=== PATIENT | male | born 1970 | race Hispanic/Latino ===

== ENCOUNTER 2018-03-07 15:37 | Emergency (ER) | payer BC ==
[2018-03-07] MEDS ORDERED: Adacel (T-DAP) 0.5 ML SYRINGE ONE (15:54)
--- NOTE | 2018-03-07 17:55 | RAD ---
RADIOGRAPH RIGHT THIRD DIGIT THREE VIEWS: History: 47-year-old male status post laceration injury to the third digit. FINDINGS: There is no fracture or dislocation. IMPRESSION: Negative. POS: JIN
--- NOTE | 2018-03-09 04:01 | CON ---
DATE OF CONSULTATION: 03/07/2018 CHIEF COMPLAINT: Contact with a sharp object to the right dominant long finger. HISTORY: Mr. Musnon reports he is a diabetic controlled with antihyperglycemics and mild diet modification. Reports that he does not have any history of previous right hand abnormality, but while performing activities at home, had a sharp knife edge contacted his dorsal right dominant middle finger. This is distal joint and medially, he had bleeding and inability to extend. The lack of extension brought him to the emergency room. PAST MEDICAL HISTORY: Diabetes treated with glyburide, oral antihyperglycemic agent along with multiple other noncontributory medications. He has not had diabetic ketoacidosis. ALLERGIES: HE HAS NO ALLERGIES. PAST SURGICAL HISTORY: Benign. REVIEW OF SYSTEMS: Noncontributory. PHYSICAL EXAMINATION: GENERAL: Patient is awake, alert, oriented x3. He has a mixed suárez and black allen, well groomed. No evidence for male pattern baldness. VITAL SIGNS: Respiratory rate was 22. NEUROLOGIC EXAMINATION: Cranial nerves intact 2 through 12. EXTREMITIES: M5 power C5-T1 except at the right middle finger where he had complete absence of active extension, but fully passively extend the right long finger distal phalangeal joint, where there was a 2 cm laceration with the edges almost in apposition. Radiographs show no abnormality in bone and joint. ASSESSMENT AND RECOMMENDATION: Zone 1 extensor tendon laceration, complete without active extension, this is probably case. We will schedule for surgery, but due to the prolonged delay expected the night of evaluation, March 07, 2018, he was told to go home. He will follow up with us after a call receive from our office to give him a surgery time either or 09 March 2018. Job ID: [id number]
== END 2018-03-07 17:12 | disposition home or self-care (01) ==
LOC: ERS 15:37
DX: S66.322A Laceration of extensor muscle, fascia and tendon of right middle finger at wrist and hand level, initial encounter (principal); M10.9 Gout, unspecified; E11.9 Type 2 diabetes mellitus without complications; Z79.899 Other long term (current) drug therapy; W26.0XXA Contact with knife, initial encounter
CPT/HCPCS: 90471; 90715

== ENCOUNTER 2018-03-08 18:02 | Day surgery (SDC) | payer BC ==
[~2018-03-08 18:02] MED LIST: Lidocaine 1% PF 5 ML VIAL ONE; Ondansetron PF 4 MG/2 ML Vial ONE; PHENYLEPHRINE-NS 100 MCG/ML 10 ML SYRINGE ONE; PROPOFOL 200 MG/20 ML VIAL ONE; ePHEDrine/0.9% NaCl/PF SYRINGE 50 mg/10 ml ONE
[2018-03-08] MEDS ORDERED: Sodium Chloride 0.9% 20 ML ONE (18:30)
[2018-03-08] MEDS ORDERED: Bacitracin Zinc Ointment 30 gm TUBE ONE (18:30)
[2018-03-08] MEDS ORDERED: CEFAZOLIN 2 GM/50 ML BAG ONE (18:44)
[2018-03-08] MEDS ORDERED: Fentanyl 100 MCG/2 ML VIAL ONE (19:39)
[2018-03-08] MEDS ORDERED: Bupivacaine PF 0.5% 30 ML VIAL ONE (19:44)
--- NOTE | 2018-03-08 21:10 | RAD ---
INTRAOPERATIVE FLUOROSCOPIC IMAGING OF THE RIGHT HAND/FINGERS: INDICATIONS: Intraoperative pinning. FINDINGS: There are overlying artifacts, which obscure portions of the right hand. A K-wire is seen, traversin g the distal aspect of the third digit, traversing the DIP joint. Correlate with intraoperative find ings. IMPRESSION: Intraoperative fluoroscopic imaging for pinning, which involves the third digit of the partially imag ed right hand. POS: JEIMY
[2018-03-08] MEDS ORDERED: Ketorolac Tromethamine 30 MG/ML VIAL ONE (21:25)
--- NOTE | 2018-03-09 03:37 | OP ---
DATE OF PROCEDURE: 03/08/2018 POSTOPERATIVE DIAGNOSES: 100% zone 1 extensor tendon laceration, right middle finger. FINDIN% zone 1 extensor tendon laceration just 3 mm proximal to the joint with no injury or violation of the joint. PROCEDURE PERFORMED: 1. Open joint reduction with pinning, distal interphalangeal joint, 0.045 inch K-wire. 2. Right zone 1 extensor tendon repair of 100% lacerations, zone 1. 3. C-arm supervision. 4. Short-arm splint application. ESTIMATED BLOOD LOSS: 5 mL. TOURNIQUET TIME: 29 minutes, C-arm supervision. INDICATION: Sharp laceration in a police detective, inability total to extend the distal interphalangeal joint with the laceration obliquely, approximately 3 to 4 mm proximal. The laceration occurred approximately 24 hours prior to procedure. DESCRIPTION OF PROCEDURE: After successful general endotracheal anesthesia, the limb was prep and draped. We then did a time-out. We gave the patient a total of 20 mL of 0.5% Marcaine; 10 before the wound was opened and 10 after the wound was closed. We then had the exsanguinated the limb and time-out done appropriately. The patient then had the transverse 2 cm incision extended 7 cm distal and 1 cm proximal created almost an oblique Bailee approach and this was gently retracted. We then saw the 100% laceration. With the joint flexed, there was a 6 mm separation and with the joint closed, there was less than a millimeter separation with joint extended. Thus, we then irrigated the wound with a 2 L normal saline, debrided the wound edges. Then, we under the C-arm supervision, performed the closed reduction of the joint and pinned it in neutral position of the sagittal plane where 0.045 K-wire penetrated in the subchondral bone of the head of the middle phalanx, about 5 to 6 mm and was in perfect position. Then, we performed with a buried [id number] x7 knots in this patient's almost 2 cm wide tendon. There was excellent apposition. No gap seen. Then, released the tourniquet, the previously debrided wound was then closed in a simple fashion 3 cm and the approach wound was closed in a same using 4-0 nylon in each corner in interrupted simple pattern and 5-0 nylon for remainder portion of the wound. He had excellent capillary refill and the digit was pink and the patient had a splint applied after cutting the pin underneath the nail. Flow was then visible. He left the operating room without complication with a splint. Job ID: [id number]
== END 2018-03-08 22:15 | disposition home or self-care (01) ==
LOC: SDC 18:02
PROVIDERS: ATTEND Orthopaedic Surgery Hand Surgery
PROC: 0RSW34Z Reposition Right Finger Phalangeal Joint with Internal Fixation Device, Percutaneous Approach (ICD-10-PCS; principal; 2018-03-08)
PROC: 0LQ70ZZ Repair Right Hand Tendon, Open Approach (ICD-10-PCS; principal; 2018-03-08)
DX: S66.322A Laceration of extensor muscle, fascia and tendon of right middle finger at wrist and hand level, initial encounter (principal)
CPT/HCPCS: 76000; J1885; J2001; J2405; J2704; J3010; J3490; S0020

== ENCOUNTER 2018-11-15 08:21 | Outpatient (CLI) | payer BC ==
--- NOTE | 2018-11-15 11:08 | ULT ---
HEPATIC DOPPLER EVALUATION: Yo scale Doppler color flow imaging with spectral analysis performed. INDICATION: Abnormal liver function enzymes. FINDINGS: Reference is made to a CT abdomen exam 02/17/2006. Increased hepatic echogenicity of the hepatic parenchyma is present. There is mild increased volume of the liver with a length demonstrated at 18 cm. There is also increased size of the spleen, 14 cm in length, approximately. No acute gallbladder pathology or elicitation of Gunter's sign during the exam. The common duct is 7 mm, which is mildly dilated. Hepatic Doppler evaluation is performed which reveals appropriate patency of the portal venous system . The middle hepatic vein is not visualized for comment. Right and left hepatic veins are appropria te in Doppler appearance. Hepatic arterial waveform is elicited. At the splenic hilum there is a co mbination of arterial and venous waveform documented. IMPRESSION: 1. Mild prominence of the common duct at 7 mm. Recommend correlation with biliary laboratory values to exclude obstructive process of the biliary system. 2. Nonvisualization of middle hepatic vein. Otherwise, Doppler evaluation is unremarkable. 3. Mild hepatosplenomegaly. Findings indicate hepatic steatosis. POS: C
== END 2018-11-15 08:22 | disposition home or self-care (01) ==
LOC: BICULT 08:21
PROVIDERS: ATTEND Internal Medicine Gastroenterology
DX: R94.5 Abnormal results of liver function studies (principal); K76.0 Fatty (change of) liver, not elsewhere classified; R16.2 Hepatomegaly with splenomegaly, not elsewhere classified
CPT/HCPCS: 76705

== ENCOUNTER 2020-10-24 00:57 | Observation (INO) | payer BC ==
[2020-10-24 01:33] LABS: #Basophils 0.1 thou/uL (0.0-0.2); #Lymphocytes 2.7 thou/uL (1.20-3.40); #Monocytes 0.8 thou/uL (0.11-0.59); #Neutrophils 6.5 thou/uL (1.40-6.50); %Basophils 0.5 % (0.0-1.0); %Eosinophils 0.4 % (0.0-10.0); %Lymphocytes 27.2 % (21.0-51.0); %Monocytes 7.5 % (0.0-10.0); %Neutrophils 64.4 % (42.0-75.0); Hemoglobin 16.3 g/dL (14.0-18.0); Mean Corpuscular HGB CONC 34.9 g/dL (32.0-36.0); Mean Corpuscular Hemoglobin 30.8 pg (27.0-31.0); Mean Corpuscular Volume 88.1 fL (78.0-98.0); Mean Platelet Volume 7.7 fL (7.4-10.4); Platelet Count 207 thou/uL (130-400); RBC Distribution Width 12.1 % (11.5-14.5); Red Blood Cell (RBC) Count 5.29 mill/uL (4.70-6.10); White Blood Cell (WBC) Count 10.1 thou/uL (4.8-10.8)
[2020-10-24 02:39] LABS: ALT (SGPT) 63 U/L (8-55); AST (SGOT) 37 U/L (5-34); Albumin 4.2 g/dL (3.5-5.0); Alkaline Phosphatase 92 U/L (40-110); Anion Gap 14 mmol/L (10-20); BUN (Urea Nitrogen) 17 mg/dL (8.9-20.6); Bilirubin, Total 0.8 mg/dL (0.2-1.2); Calc. Creatinine Clearance 0 mL/min (70-130); Calcium 9.7 mg/dL (7.8-10.44); Carbon Dioxide 26 mmol/L (22-29); Chloride 101 mmol/L (98-107); Globulin 3.4 g/dL (2.4-3.5); Glucose 197 mg/dL (70-105); Potassium 3.9 mmol/L (3.5-5.1); Protein, Total 7.6 g/dL (6.0-8.3); Sodium 137 mmol/L (136-145)
[2020-10-24 03:06] VITALS: BMI 35.9
[2020-10-24] MEDS ORDERED: Atorvastatin Calcium 10 MG TAB PO SCH (09:00)
[2020-10-24] MEDS ORDERED: Losartan/Hydrochlorothiazide 100 mg/25 mg Tablet PO SCH (09:00)
[2020-10-24] MEDS ORDERED: Metoprolol Tartrate 50 MG TAB PO SCH (09:00)
[2020-10-24 11:30] LABS: Anion Gap 12 mmol/L (10-20); BUN (Urea Nitrogen) 20 mg/dL (8.9-20.6); Calc. Creatinine Clearance 163 mL/min (70-130); Calcium 9.4 mg/dL (7.8-10.44); Carbon Dioxide 25 mmol/L (22-29); Chloride 104 mmol/L (98-107); Glucose 205 mg/dL (70-105); Potassium 4.1 mmol/L (3.5-5.1); Sodium 137 mmol/L (136-145)
[2020-10-24 12:14] VITALS: BP 123/83; TEMP 98.1
== END 2020-10-24 16:07 | disposition home or self-care (01) ==
LOC: ERS 00:57 → T4-A 01:37
PROVIDERS: ADMIT Student in an Organized Health Care Education/Training Program; ATTEND Hospitalist
DX: T38.3X1A Poisoning by insulin and oral hypoglycemic [antidiabetic] drugs, accidental (unintentional), initial encounter (principal); E11.9 Type 2 diabetes mellitus without complications; I10 Essential (primary) hypertension; E78.5 Hyperlipidemia, unspecified; M10.9 Gout, unspecified; Z79.84 Long term (current) use of oral hypoglycemic drugs; Z79.899 Other long term (current) drug therapy
CPT/HCPCS: 36415; 36416; 80053; 85025; 99284; G0378

== ENCOUNTER 2023-03-06 13:54 | Outpatient (CLI) | payer BC | END 2023-03-06 13:55 | disposition home or self-care (01) | LOC: BICMRI 13:54 | PROVIDERS: ATTEND Orthopaedic Surgery | DX: M50.30 Other cervical disc degeneration, unspecified cervical region (principal); M47.812 Spondylosis without myelopathy or radiculopathy, cervical region | CPT/HCPCS: 72141 ==

== ENCOUNTER 2023-09-29 10:22 | Outpatient (CLI) | payer BC | END 2023-09-29 10:23 | disposition home or self-care (01) | LOC: BICMRI 10:22 | PROVIDERS: ATTEND Orthopaedic Surgery | DX: M25.512 Pain in left shoulder (principal); M65.812 Other synovitis and tenosynovitis, left shoulder; M75.82 Other shoulder lesions, left shoulder; S43.432A Superior glenoid labrum lesion of left shoulder, initial encounter ==

== ENCOUNTER 2024-09-27 10:27 | Outpatient (CLI) | payer BC | END 2024-09-27 10:28 | disposition home or self-care (01) | LOC: MRI 10:27 | PROVIDERS: ATTEND Orthopaedic Surgery | DX: M75.112 Incomplete rotator cuff tear or rupture of left shoulder, not specified as traumatic (principal); M19.012 Primary osteoarthritis, left shoulder ==